=== PATIENT | female | born 1970 | race Caucasian/White ===

== ENCOUNTER → 2019-07-21 | Outpatient (CLI) | payer MEDICARE, MEDICAID | END | disposition home or self-care (01) | LOC: RAD 16:20 | PROVIDERS: ATTEND Internal Medicine | DX: J90 Pleural effusion, not elsewhere classified (principal); J98.11 Atelectasis | CPT/HCPCS: 71046 ==

== ENCOUNTER → 2019-08-02 | Outpatient (CLI) | payer MEDICARE, MEDICAID ==
[~2019-08-02] MED LIST: LIDOCAINE 1%, 10ML ONE
== END | disposition home or self-care (01) ==
LOC: RAD 13:19
PROVIDERS: ATTEND Internal Medicine
DX: J90 Pleural effusion, not elsewhere classified (principal); R06.00 Dyspnea, unspecified
CPT/HCPCS: 32555

== ENCOUNTER 2019-08-14 15:08 | Inpatient (IN) | payer MEDICARE, MEDICAID ==
[~2019-08-14] VITALS: Ht 170.2 cm; Wt 63.2 kg
[~2019-08-14 15:08] MED LIST changes: +ABEM150T PO; +ACET325T26 PO; +ANAS1TAB49 PO; +CELE200C PO; +GABA-827 PO; -LIDOCAINE 1%, 10ML ONE; +LITH300T30 PO; +LUPRON IM; +METH750T87 PO; +NORCO; +PHOS250T PO; +PROM25TA10 PO
--- NOTE | 2019-08-14 15:08 | NUR ---
ALTERED MENTALS STATUS, JUST DISCHARGED FROM THE HOSPITAL AFTER GETTING A CHEST TUBE LAST STAY LEFT SIDE.REPORTS COUGH, SOB, RAPID RR. FAMILY THINKS IT COULD BE A UTI AND ALSO WOULD LIKE HER LITHIUM CHECK. N/V/D. PT IN BED IN GOWN, EKG DONE, 20G IV STARTED IN THE LEFT HAND, CONT SET UP AND CHARGER.SISTER AT BEDSIDE. PT REFUSED URINE CATH. WENT OVER PLAN OF CARE, SISTER AGREES TO PLAN.
[2019-08-14] MEDS ORDERED: SODIUM CHLORIDE FLUSH 10ML SYR IVF ONE (15:30)
[2019-08-14] MEDS ORDERED: SODIUM CHLORIDE 0.9% 1,000ML IVBOLUS ONE ×2 (15:30→17:30)
[2019-08-14] MEDS ORDERED: PLEASE ENTER HEIGHT AND WEIGHT MC SCH (15:30)
--- NOTE | 2019-08-14 16:03 | NUR ---
XREAY/LAB IN ROOM
[2019-08-14 16:05] LABS: ALANINE AMINOTRANSFERASE 67 U/L (12-78); ALBUMIN 2.2 g/dL (3.4-5.0); ANION GAP 9 mmol/L (5-15); CALCIUM 8.6 mg/dL (8.5-10.1); CHLORIDE 102 mmol/L (98-107); CREATININE 0.91 mg/dL (0.55-1.02)
[2019-08-14 16:08] LABS: MEAN CORPUSCULAR HEMOGLOBIN 31.2 pg (27.0-34.8); MEAN CORPUSCULAR HGB CONC 32.1 g/dL (32.4-35.8); MEAN PLATELET VOLUME 8.6 fL (7.4-10.4); PLATELET COUNT 339 x10^3/uL (130-400); RED BLOOD COUNT 4.26 x10^6/uL (3.82-5.3); RED CELL DISTRIBUTION WIDTH 22.1 % (9.6-15.2)
[2019-08-14 16:14] LABS: D-DIMER (DIC) 7.31 ug/mlFEU (0.00-0.52); PROTIME 10.6 Seconds (9.6-11.5)
[2019-08-14 16:15] LABS: ALKALINE PHOSPHATASE 360 U/L (45-117); TOTAL PROTEIN 6.1 g/dL (6.4-8.2)
[2019-08-14 16:28] LABS: BASOPHILS # (AUTO) 0.05 x10^3/uL (0-0.1); BASOPHILS % (AUTO) 1 % (0-1); EOSINOPHILS # (AUTO) 0.07 x10^3/uL (0-0.4); EOSINOPHILS % (AUTO) 1 % (1-7); LYMPHOCYTES # (AUTO) 1.16 x10^3/uL (1-3.4); LYMPHOCYTES % (AUTO) 16 % (22-44); MD SCAN; MONOCYTES # (AUTO) 0.56 x10^3/uL (0.2-0.8); MONOCYTES % (AUTO) 8 % (2-9); NEUTROPHILS # (AUTO) 5.35 x10^3/uL (1.8-6.8); NEUTROPHILS % (AUTO) 75 % (42-75)
[2019-08-14 16:29] LABS: FREE T4 (FREE THYROXINE) 1.64 ng/dL (0.76-1.46)
[2019-08-14] MEDS ORDERED: BENZONATATE 100 MG CAPSULE ONE ×2 (16:36→16:56)
[2019-08-14] MEDS ORDERED: BENZONATATE 100 MG CAPSULE PO ONE (17:00)
[2019-08-14] MEDS ORDERED: AZITHROMYCIN 500 MG in SODIUM CHLORIDE 0.9% 250 ML IV ONE (18:00)
[2019-08-14] MEDS ORDERED: SODIUM CHLORIDE 0.9% 1,000 ML IV ONE (18:00)
[2019-08-14] MEDS ORDERED: NS + 20MEQ KCL 1,000 ML IV SCH (18:09)
[2019-08-14] MEDS ORDERED: LEVOFLOXACIN/PMX 750MG/150ML 150 ML IV SCH (18:30)
[2019-08-14] MEDS ORDERED: METHOCARBAMOL 750 MG TABLET PO PRN (18:30)
[2019-08-14] MEDS ORDERED: GUAIFENESIN/DM 200-20MG, 10ML UDC PO PRN (18:30)
[2019-08-14] MEDS ORDERED: ACETAMINOPHEN 325 MG TABLET PO PRN ×2 (18:30)
[2019-08-14] MEDS ORDERED: PROMETHAZINE 25 MG/ML, 1ML IM PRN (18:30)
[2019-08-14] MEDS ORDERED: POLYETHYLENE GLYCOL 17 GM PACKET PO PRN (18:30)
[2019-08-14] MEDS ORDERED: BISACODYL 10 MG SUPP PR PRN (18:30)
[2019-08-14] MEDS ORDERED: ONDANSETRON 2MG/ML, 2ML IVPush PRN (18:30)
[2019-08-14] MEDS ORDERED: SODIUM PHOSPHATE 10 MMOL in SODIUM CHLORIDE 0.9% 500 ML IV ONE (20:00)
[2019-08-14] MEDS ORDERED: LEVOFLOXACIN/PMX 750MG/150ML 150 ML IV ONE (20:00)
[2019-08-14] MEDS ORDERED: LEVOFLOXACIN/PMX 750MG/150ML 150 ML ONE (21:14)
--- NOTE | 2019-08-14 21:33 | NUR ---
delay in abnx due difficult iv access. iv in left hand is painful when flushing. no iv or bp on right. us iv established and medicating one at a time. due to incompatabilities of meds.
--- NOTE | 2019-08-14 22:00 | NUR ---
REPORT RECIEVED FROM SHERON WEISS
--- NOTE | 2019-08-14 22:00 | NUR ---
Bhupinder sprague in [facility] - 08/14/19 at 2340 by SHANI REPORT RECIEVED FROM SHERON BOWSER
--- NOTE | 2019-08-14 23:33 | NUR ---
UPON INTRODUCTION PATIENT'S FAMILY IS CONFRONTATIONAL, USING ACQUSATIONS REGARDING THE NURSE'S ABILITY TO CARE FOR PATIENT DUE TO THE PATIENT BEING IN THE EMERGENCY ROOM VERSUS THE COVID DEPARTMENT. PATIENT'S FAMILY WAS ADJUSTING THE IV PUMP, STATING THAT "NO ONE WOULD SILENCE THE PUMP SO SHE JUST HIT PAUSE". THE PATIENT FAMILY, SISTER, IS CONCERNED THAT THE NURSE WILL NOT BE ABLE TO GIVE HER MEDICATIONS OR PROPERLY MONITOR HER. EDUCATION PROVIDED TO FAMILY. NO EVIDENCE OF EDUCATION EXHIBITED. PATIENT'S FAMILY CONTINUES TO REMAIN CONFRONTATIONAL. PATIENT MOVED TO HOSPITAL BED, TOLERATED WELL. FAMILY REMAINS DISPLEASED WITH CARE IN EMERGENCY ROOM. PATIENT IS SHOWING NO SIGNS OF ACUTE DISTRESS. PATIENT IS TOLERATING INTERVENTIONS WELL.
--- NOTE | 2019-08-14 23:50 | NUR ---
SITTER AT BEDSIDE WITH PATIENT TO IMPROVE PATIENT SAFETY. FAMILY WAS CONCERNED WITH ONE NURSE BEING ABLE TO CARE FOR PATIENT. SITTER IS BEING PROVIDED PER FAMILY REQUEST.
[2019-08-14] MEDS ORDERED: OMNIPAQUE 350 MG/ML, 100ML BOTTLE ONE (23:55)
--- NOTE | 2019-08-15 00:09 | NUR ---
PHYSICIAN AT BEDSIDE WITH PATIENT UPDATING PATIENT ON PLAN OF CARE. PATIENT HAS HAD COVID SCREEN COMPLETED BY MD, RESULTED NEGATIVE.
--- NOTE | 2019-08-15 00:11 | NUR ---
Pts sister who reports she is POA for her sister Jeffery. They were informed with MD Ortiz at bedside that pt requires cardiac monitoring due to lithium elevation. Pts sister wishes to refuse the cardiac monitoring and have her go to oncology floor due to the quality of care they received last time and were extremely grateful. Pts sister verbalized full understnading of this and the understanding for potential complications that can occur due to lack of cardiac montioring.
--- NOTE | 2019-08-15 00:39 | NUR ---
PATIENT TRASNFERRED UPSTAIRS ON HOSPITAL BED, ALLEY HILTON AND RN. REPORT GIVEN TO ONCOMING NURSE. NO FURTHER QUESTIONS NOTED AT TIME OF VERBAL REPORT.
[2019-08-15] MEDS: MEROPENEM 1 GM in SODIUM CHLORIDE 0.9% 100 ML IV SCH ×3 (01:13→17:07)
[2019-08-15] MEDS ORDERED: CLON1TAB PO (02:52)
[2019-08-15 02:56] VITALS: BP 99/60
[2019-08-15 03:56] VITALS: BP 99/60
[2019-08-15] MEDS: morphine SULFATE 10 MG/ML, 1ML IVPush PRN ×3 (05:44→21:00)
[2019-08-15] MEDS: PROMETHAZINE 25MG TABLET PO PRN ×2 (05:44→20:59)
[2019-08-15 07:15] VITALS: BP 122/86
[2019-08-15] MEDS ORDERED: VANCOMYCIN PER PHARMACY MC PRN (08:00)
[2019-08-15] MEDS ORDERED: PHARMACOKINETIC MONITORING MC PRN (08:00)
[2019-08-15] MEDS: ANASTROZOLE 1 MG TABLET PO SCH (09:00)
[2019-08-15] MEDS ORDERED: ZIPRASIDONE 20 MG INJ IM SCH (09:00)
[2019-08-15] MEDS: SENNA/DOCUSATE TABLET PO SCH (09:00)
[2019-08-15] MEDS: K-PHOS NEUTRAL 250MG TAB PO SCH ×5 (09:00→21:00)
[2019-08-15] MEDS: VANCOMYCIN PMX 1GM/200ML 200 ML IVPB SCH (09:28)
[2019-08-15] MEDS: ENOXAPARIN 40 MG/0.4 ML SQ SCH (09:29)
[2019-08-15 09:48] LABS: MEAN CORPUSCULAR HEMOGLOBIN 31.8 pg (27.0-34.8); MEAN CORPUSCULAR HGB CONC 32.9 g/dL (32.4-35.8); PLATELET COUNT 310 x10^3/uL (130-400); RED BLOOD COUNT 3.67 x10^6/uL (3.82-5.3); RED CELL DISTRIBUTION WIDTH 22.2 % (9.6-15.2)
[2019-08-15 09:56] LABS: ALBUMIN 1.6 g/dL (3.4-5.0); CHLORIDE 110 mmol/L (98-107)
[2019-08-15 10:00] LABS: ALANINE AMINOTRANSFERASE 53 U/L (12-78); ALKALINE PHOSPHATASE 323 U/L (45-117); BILIRUBIN,TOTAL 0.8 mg/dL (0.2-1.0); CREATININE 0.67 mg/dL (0.55-1.02); TOTAL PROTEIN 4.9 g/dL (6.4-8.2)
[2019-08-15 10:07] LABS: ANION GAP 10 mmol/L (5-15); BASOPHILS # (AUTO) 0.06 x10^3/uL (0-0.1); BASOPHILS % (AUTO) 1 % (0-1); CALCIUM 7.2 mg/dL (8.5-10.1); EOSINOPHILS # (AUTO) 0.08 x10^3/uL (0-0.4); EOSINOPHILS % (AUTO) 1 % (1-7); LYMPHOCYTES # (AUTO) 1.37 x10^3/uL (1-3.4); LYMPHOCYTES % (AUTO) 23 % (22-44); MD SCAN; MONOCYTES # (AUTO) 0.55 x10^3/uL (0.2-0.8); MONOCYTES % (AUTO) 9 % (2-9); NEUTROPHILS # (AUTO) 3.81 x10^3/uL (1.8-6.8); NEUTROPHILS % (AUTO) 65 % (42-75)
[2019-08-15] MEDS: POTASSIUM ACID PHOSPHATE 500 MG TABLET.SOL PO SCH ×3 (12:00→17:05)
[2019-08-15 12:58] LABS: MICROSCOPIC AUTO
[2019-08-15 13:07] LABS: AMPHETAMINE SCREEN, URINE Negative (Negative); BARBITURATE SCREEN, URINE Negative (Negative); BENZODIAZEPINE SCREEN, URINE Positive (Negative); CANNABINOID SCREEN, URINE Positive (Negative); COCAINE SCREEN, URINE Negative (Negative); METHADONE SCREEN, URINE Negative (Negative); OPIATE SCREEN, URINE Positive (Negative)
[2019-08-15] MEDS ORDERED: SODIUM PHOSPHATE 10 MMOL in SODIUM CHLORIDE 0.9% 500 ML IV ONE (13:30)
[2019-08-15 13:54] VITALS: BP 111/76
[2019-08-15] MEDS: NS + 20MEQ KCL 1,000 ML IV SCH ×2 (14:21→21:00)
[2019-08-15] MEDS: POTASSIUM CHLORIDE 20 MEQ TAB.ER.PRT PO SCH (17:00)
[2019-08-15] MEDS ORDERED: NS + 20MEQ KCL 1,000 ML IV SCH (18:09)
[2019-08-15 18:57] VITALS: BP 101/65
[2019-08-15] MEDS: ZIPRASIDONE 20MG CAPSULE PO SCH (19:35)
[2019-08-15] MEDS ORDERED: ZIPRASIDONE 40MG CAPSULE PO ONE (20:30)
[2019-08-16] MEDS: MEROPENEM 1 GM in SODIUM CHLORIDE 0.9% 100 ML IV SCH ×3 (01:32→18:09)
[2019-08-16 01:51] VITALS: BP 99/69
[2019-08-16] MEDS: VANCOMYCIN PMX 1GM/200ML 200 ML IVPB SCH ×2 (02:23→21:01)
[2019-08-16 04:12] LABS: MEAN CORPUSCULAR HEMOGLOBIN 31.7 pg (27.0-34.8); MEAN CORPUSCULAR HGB CONC 31.9 g/dL (32.4-35.8); MEAN PLATELET VOLUME 7.9 fL (7.4-10.4); PLATELET COUNT 242 x10^3/uL (130-400); RED BLOOD COUNT 3.81 x10^6/uL (3.82-5.3); RED CELL DISTRIBUTION WIDTH 22.1 % (9.6-15.2)
[2019-08-16 04:19] LABS: ALANINE AMINOTRANSFERASE 58 U/L (12-78); ALBUMIN 1.6 g/dL (3.4-5.0); ANION GAP 8 mmol/L (5-15); CALCIUM 6.8 mg/dL (8.5-10.1); CHLORIDE 113 mmol/L (98-107); CREATININE 0.75 mg/dL (0.55-1.02)
[2019-08-16 04:21] LABS: ALKALINE PHOSPHATASE 361 U/L (45-117); BILIRUBIN,TOTAL 1.3 mg/dL (0.2-1.0); TOTAL PROTEIN 5.2 g/dL (6.4-8.2)
[2019-08-16 05:53] LABS: BASOPHILS # (AUTO) 0.02 x10^3/uL (0-0.1); BASOPHILS % (AUTO) 1 % (0-1); EOSINOPHILS # (AUTO) 0.05 x10^3/uL (0-0.4); EOSINOPHILS % (AUTO) 1 % (1-7); LYMPHOCYTES # (AUTO) 1.06 x10^3/uL (1-3.4); LYMPHOCYTES % (AUTO) 21 % (22-44); MD SCAN; MONOCYTES # (AUTO) 0.49 x10^3/uL (0.2-0.8); MONOCYTES % (AUTO) 10 % (2-9); NEUTROPHILS # (AUTO) 3.41 x10^3/uL (1.8-6.8); NEUTROPHILS % (AUTO) 68 % (42-75)
[2019-08-16] MEDS: POTASSIUM ACID PHOSPHATE 500 MG TABLET.SOL PO SCH ×5 (06:00→23:55)
[2019-08-16] MEDS: NS + 20MEQ KCL 1,000 ML IV SCH ×4 (06:33→17:07)
[2019-08-16] MEDS: ENOXAPARIN 40 MG/0.4 ML SQ SCH (08:00)
[2019-08-16 08:10] VITALS: BP 101/64
[2019-08-16] MEDS: LITHIUM CARBONATE 150 MG CAPSULE PO SCH ×3 (09:00→21:00)
[2019-08-16] MEDS: K-PHOS NEUTRAL 250MG TAB PO SCH ×2 (09:00→09:34)
[2019-08-16] MEDS: ANASTROZOLE 1 MG TABLET PO SCH (09:00)
[2019-08-16] MEDS: SENNA/DOCUSATE TABLET PO SCH (09:00)
[2019-08-16] MEDS: ZIPRASIDONE 20MG CAPSULE PO SCH ×3 (09:00→21:00)
[2019-08-16] MEDS: POTASSIUM CHLORIDE 20 MEQ TAB.ER.PRT PO SCH (09:33)
[2019-08-16] MEDS: PROMETHAZINE 25MG TABLET PO PRN (09:34)
[2019-08-16] MEDS ORDERED: POTASSIUM PHOSPHATE 44 MEQ in SODIUM CHLORIDE 0.9% 500 ML IV ONE (10:00)
[2019-08-16 12:21] VITALS: BP 112/71
[2019-08-16] MEDS ORDERED: LORazepam 2 MG/ML, 1ML IVPush PRN (13:00)
[2019-08-16] MEDS ORDERED: FUROSEMIDE 20 MG/2 ML IV ONE (15:00)
[2019-08-16] MEDS: morphine SULFATE 10 MG/ML, 1ML IVPush PRN ×2 (15:27→22:37)
[2019-08-16 18:33] VITALS: BP 98/46
[2019-08-17 00:41] VITALS: BP 114/67
[2019-08-17] MEDS: MEROPENEM 1 GM in SODIUM CHLORIDE 0.9% 100 ML IV SCH ×2 (00:55→08:10)
[2019-08-17] MEDS: POTASSIUM ACID PHOSPHATE 500 MG TABLET.SOL PO SCH ×2 (05:48→13:07)
[2019-08-17 06:03] LABS: CHLORIDE 112 mmol/L (98-107)
[2019-08-17 06:04] LABS: MEAN CORPUSCULAR HEMOGLOBIN 31.9 pg (27.0-34.8); MEAN CORPUSCULAR HGB CONC 32.5 g/dL (32.4-35.8); MEAN PLATELET VOLUME 8.1 fL (7.4-10.4); PLATELET COUNT 253 x10^3/uL (130-400); RED BLOOD COUNT 4.03 x10^6/uL (3.82-5.3); RED CELL DISTRIBUTION WIDTH 22.6 % (9.6-15.2)
[2019-08-17] MEDS: morphine SULFATE 10 MG/ML, 1ML IVPush PRN ×3 (06:12→16:58)
[2019-08-17 06:19] LABS: ALANINE AMINOTRANSFERASE 54 U/L (12-78); ALBUMIN 1.7 g/dL (3.4-5.0); ALKALINE PHOSPHATASE 345 U/L (45-117); ANION GAP 9 mmol/L (5-15); BILIRUBIN,TOTAL 1.3 mg/dL (0.2-1.0); CALCIUM 6.6 mg/dL (8.5-10.1); CREATININE 0.65 mg/dL (0.55-1.02); TOTAL PROTEIN 5.6 g/dL (6.4-8.2)
[2019-08-17 06:37] LABS: BASOPHILS # (AUTO) 0.01 x10^3/uL (0-0.1); BASOPHILS % (AUTO) 0 % (0-1); EOSINOPHILS # (AUTO) 0.11 x10^3/uL (0-0.4); EOSINOPHILS % (AUTO) 2 % (1-7); LYMPHOCYTES # (AUTO) 1.33 x10^3/uL (1-3.4); LYMPHOCYTES % (AUTO) 22 % (22-44); MD SCAN; MONOCYTES # (AUTO) 0.57 x10^3/uL (0.2-0.8); MONOCYTES % (AUTO) 10 % (2-9); NEUTROPHILS # (AUTO) 3.93 x10^3/uL (1.8-6.8); NEUTROPHILS % (AUTO) 66 % (42-75)
[2019-08-17 06:53] VITALS: BP 119/68
[2019-08-17] MEDS: ENOXAPARIN 40 MG/0.4 ML SQ SCH (08:08)
[2019-08-17] MEDS: ZIPRASIDONE 20MG CAPSULE PO SCH (08:11)
[2019-08-17] MEDS: LITHIUM CARBONATE 150 MG CAPSULE PO SCH (08:11)
[2019-08-17] MEDS: SENNA/DOCUSATE TABLET PO SCH (08:11)
[2019-08-17] MEDS: K-PHOS NEUTRAL 250MG TAB PO SCH (08:11)
[2019-08-17] MEDS: ANASTROZOLE 1 MG TABLET PO SCH (08:14)
[2019-08-17] MEDS ORDERED: POTASSIUM PHOSPHATE 44 MEQ in SODIUM CHLORIDE 0.9% 500 ML IV ONE (09:00)
[2019-08-17] MEDS: VANCOMYCIN PMX 1GM/200ML 200 ML IVPB SCH (14:47)
[2019-08-17] MEDS ORDERED: ZIPR20CA2 PO (15:42)
[2019-08-17] MEDS ORDERED: CEFD300C37 PO (15:42)
[2019-08-17] MEDS ORDERED: LITH300T30 PO (15:42)
[2019-08-17] MEDS ORDERED: DOXY100T PO (15:42)
[2019-08-17] MEDS ORDERED: RIVA20TA PO (15:42)
[2019-08-17] MEDS ORDERED: RIVA15TA PO (15:42)
[2019-08-17 15:47] VITALS: BP 116/70
[2019-08-17] MEDS ORDERED: RIVAROXABAN 15 MG TABLET PO SCH (17:00)
== END 2019-08-17 17:27 | disposition hospice, inpatient (51) | DRG 871 ==
LOC: ED 17:46 → EDIP 17:57 → 3WST 08-15 00:31
PROVIDERS: ADMIT Hospitalist; ATTEND Hospitalist
DX: A41.9 Sepsis, unspecified organism (principal); E43 Unspecified severe protein-calorie malnutrition; G92 Toxic encephalopathy; J18.9 Pneumonia, unspecified organism; J90 Pleural effusion, not elsewhere classified; J94.8 Other specified pleural conditions; C79.9 Secondary malignant neoplasm of unspecified site; I82.622 Acute embolism and thrombosis of deep veins of left upper extremity; K74.60 Unspecified cirrhosis of liver; E87.6 Hypokalemia; E83.39 Other disorders of phosphorus metabolism; F12.90 Cannabis use, unspecified, uncomplicated; F31.9 Bipolar disorder, unspecified; F41.9 Anxiety disorder, unspecified; I25.10 Atherosclerotic heart disease of native coronary artery without angina pectoris; T43.595A Adverse effect of other antipsychotics and neuroleptics, initial encounter; I89.0 Lymphedema, not elsewhere classified; Z85.118 Personal history of other malignant neoplasm of bronchus and lung; Z85.3 Personal history of malignant neoplasm of breast; Z87.891 Personal history of nicotine dependence; Z95.0 Presence of cardiac pacemaker; Z01.84 Encounter for antibody response examination; Z68.21 Body mass index [BMI] 21.0-21.9, adult; Z20.828 Contact with and (suspected) exposure to other viral communicable diseases; Z51.5 Encounter for palliative care; Z82.49 Family history of ischemic heart disease and other diseases of the circulatory system
CPT/HCPCS: 36415; 36600; 70450; 71045; 71275; 80053; 80178; 80307; 81001; 82140; 82728; 82803; 83605; 83615; 83735; 84100; 84145; 84439; 84443; 85025; 85049; 85379; 85384; 85610; 85730; 86140; 87040; 87635; 93005; 96361; 96374; 96375; 99292; G0378; J0456; J1650; J1956; J2185; J3370; J3480; Q0169; Q9967; J1940; J2270; J7030; J7040; J7050; U0001-CS